=== PATIENT | male | born 1965 | race Caucasian/White ===

== ENCOUNTER 2019-12-21 05:36 | Inpatient (IN) | payer OTHER ==
[2019-12-18 11:16] LABS: BASOPHILS # (AUTO) 0.03 x10^3/uL (0-0.1); BASOPHILS % (AUTO) 0 % (0-1); EOSINOPHILS # (AUTO) 0.28 x10^3/uL (0-0.4); EOSINOPHILS % (AUTO) 4 % (1-7); LYMPHOCYTES # (AUTO) 2.01 x10^3/uL (1-3.4); LYMPHOCYTES % (AUTO) 25 % (22-44); MD NO; MEAN CORPUSCULAR HGB CONC 33.8 g/dL (33.2-36.2); MEAN CORPUSCULAR VOLUME 97.5 fL (81-97); MEAN PLATELET VOLUME 7.1 fL (7.4-10.4); MONOCYTES # (AUTO) 0.52 x10^3/uL (0.2-0.8); MONOCYTES % (AUTO) 6 % (2-9); NEUTROPHILS # (AUTO) 5.32 x10^3/uL (1.8-6.8); NEUTROPHILS % (AUTO) 65 % (42-75); PLATELET COUNT 305 x10^3/uL (130-400); RED BLOOD COUNT 4.61 x10^6/uL (4.38-5.82); RED CELL DISTRIBUTION WIDTH 13.5 % (9.4-14.8)
[2019-12-18 11:21] LABS: HCT (SEDRATE) 44.9 % (39.2-51.8)
[2019-12-18 11:22] LABS: INTERNATIONAL NORMALIZED RATIO 0.94 (0.93-1.1)
[2019-12-18 11:26] LABS: ALANINE AMINOTRANSFERASE 24 U/L (12-78); ALBUMIN 3.7 g/dL (3.4-5.0); ANION GAP 5 mmol/L (5-15); CALCIUM 8.9 mg/dL (8.5-10.1); CHLORIDE 108 mmol/L (98-107); CREATININE 1.07 mg/dL (0.7-1.3)
[2019-12-18 11:28] LABS: ALKALINE PHOSPHATASE 69 U/L (45-117); BILIRUBIN,TOTAL 0.6 mg/dL (0.2-1.0); TOTAL PROTEIN 7.3 g/dL (6.4-8.2)
[~2019-12-21] VITALS: Ht 167.6 cm; Wt 81.4 kg
[~2019-12-21 05:36] MED LIST: BACL-19 PO; HYDR-3240 PO; IBUP-1223 PO; LISI-167 PO; MOME17SP NS; MONT10TA6 PO; MORP10CA7 PO; MULT-658 PO; simvastatin PO
[2019-12-21] MEDS ORDERED: SIMV80TA18 PO (06:29)
[2019-12-21] MEDS ORDERED: VANCOMYCIN PMX 1GM/200ML 200 ML IV ONE (06:30)
[2019-12-21] MEDS ORDERED: LACTATED RINGERS 1,000 ML IV SCH (06:32)
[2019-12-21] MEDS ORDERED: LIDOCAINE-MPF 1%, 2ML ONE (06:34)
[2019-12-21] MEDS ORDERED: THROMBIN 20,000 UNIT VIAL TP ONE (06:56)
[2019-12-21] MEDS ORDERED: TRANEXAMIC ACID 100 MG/ML, 10ML ONE ×2 (06:56)
[2019-12-21] MEDS ORDERED: BUPIVACAINE/PF-EPI 0.5% 1:200K ONE (06:56)
[2019-12-21] MEDS ORDERED: BACITRACIN 50,000 UNIT ONE (06:56)
[2019-12-21] MEDS ORDERED: VANCOMYCIN 1,000 MG ONE ×2 (06:56→10:33)
[2019-12-21] MEDS ORDERED: PROPOFOL 100 ML ONE (06:56)
[2019-12-21] MEDS ORDERED: FENTANYL PF 250 MCG/5ML ONE (06:57)
[2019-12-21] MEDS ORDERED: MIDAZOLAM 1 MG/ML, 5ML ONE (06:57)
[2019-12-21] MEDS ORDERED: OxyconTIN ER 20 MG TAB.ER PO ONE (07:00)
[2019-12-21] MEDS ORDERED: FAMOTIDINE 20 MG TABLET PO ONE (07:00)
[2019-12-21] MEDS ORDERED: LIDOCAINE-MPF 1%, 2ML INFIL ONE (07:00)
[2019-12-21] MEDS ORDERED: GABAPENTIN 300 MG CAPSULE PO ONE (07:00)
[2019-12-21] MEDS ORDERED: ACETAMINOPHEN 500 MG TABLET PO ONE (07:00)
[2019-12-21] MEDS ORDERED: CEFAZOLIN 1,000 MG ONE (07:03)
[2019-12-21] MEDS ORDERED: DEXAMETHASONE 4 MG/ML, 1ML ONE ×2 (07:03)
[2019-12-21] MEDS ORDERED: SUCCINYLCHOLINE 20 MG/ML, 10ML ONE (07:37)
[2019-12-21] MEDS ORDERED: DEXAMETHASONE 4 MG/ML, 1ML IVPush PRN (08:00)
[2019-12-21] MEDS ORDERED: SENNA/DOCUSATE TABLET PO PRN (08:00)
[2019-12-21] MEDS ORDERED: MAGNESIUM HYDROXIDE 8%, 30ML UDC PO PRN (08:00)
[2019-12-21] MEDS ORDERED: LORazepam 1MG TABLET PO PRN (08:00)
[2019-12-21] MEDS ORDERED: BISACODYL 10 MG SUPP PR PRN (08:00)
[2019-12-21] MEDS ORDERED: LABETALOL 5MG/ML, 20ML IVPush PRN (08:00)
[2019-12-21] MEDS ORDERED: DIPHENHYDRAMINE 50 MG/ML, 1ML IVPush PRN (08:00)
[2019-12-21] MEDS ORDERED: morphine SULFATE 10 MG/ML, 1ML IVPush PRN (08:00)
[2019-12-21] MEDS ORDERED: KETOROLAC 30 MG/1 ML IM PRN (08:00)
[2019-12-21] MEDS ORDERED: ACETAMINOPHEN 500 MG TABLET PO PRN (08:00)
[2019-12-21] MEDS ORDERED: CEFAZOLIN PMX 1GM/50ML 50 ML IVPB SCH (08:00)
[2019-12-21] MEDS ORDERED: OXYcodone IR 5MG TABLET PO PRN (08:00)
[2019-12-21] MEDS: D5%-0.9% NACL+KCL 20MEQ 1,000 ML IV SCH ×2 (08:00→18:02)
[2019-12-21] MEDS ORDERED: PHARMACY MAY ADJ FOR RENAL FX MC PRN (08:00)
[2019-12-21] MEDS ORDERED: PROMETHAZINE 25 MG/ML, 1ML IM PRN (08:00)
[2019-12-21] MEDS ORDERED: hydrALAzine 20 MG/ML, 1ML IV PRN (10:00)
[2019-12-21] MEDS ORDERED: ONDANSETRON 2MG/ML, 2ML IV PRN (10:00)
[2019-12-21] MEDS ORDERED: HYDROmorphone 2 MG/ML, 1ML IVPush PRN (10:00)
[2019-12-21] MEDS ORDERED: PROMETHAZINE 25 MG/ML, 1ML IV PRN (10:00)
[2019-12-21] MEDS ORDERED: OXYcodone 5 MG/5 ML ORAL.SOL UDC PO PRN (10:00)
[2019-12-21] MEDS ORDERED: LABETALOL 5MG/ML, 20ML IV PRN (10:00)
[2019-12-21] MEDS ORDERED: MEPERIDINE/PF 25MG/ML,1ML IVPush PRN (10:00)
[2019-12-21] MEDS ORDERED: PROPOFOL 50 ML ONE (10:47)
[2019-12-21] MEDS ORDERED: PROPOFOL 10 MG/ML, 20ML ONE (10:48)
[2019-12-21] MEDS ORDERED: THROMBIN 5,000 UNIT VIAL TP ONE ×2 (11:39→11:42)
[2019-12-21] MEDS ORDERED: ONDANSETRON 2MG/ML, 2ML ONE (12:00)
[2019-12-21] MEDS ORDERED: FENTANYL PF 100 MCG/2ML ONE ×3 (12:03→13:32)
[2019-12-21] MEDS ORDERED: ROCURONIUM 10MG/ML,5ML ONE (12:06)
[2019-12-21] MEDS ORDERED: KETOROLAC 30 MG/1 ML ONE (12:55)
[2019-12-21] MEDS: FENTANYL PF 100 MCG/2ML IV PRN ×3 (12:58→13:35)
[2019-12-21] MEDS ORDERED: KETOROLAC 30 MG/1 ML IVPush PRN (13:30)
[2019-12-21] MEDS ORDERED: METHOCARBAMOL 1,000 MG in DEXTROSE 5% 100 ML IV PRN ×2 (13:30→16:00)
[2019-12-21] MEDS ORDERED: LORazepam 2 MG/ML, 1ML ONE (13:43)
[2019-12-21] MEDS ORDERED: LORazepam 2 MG/ML, 1ML IVPush PRN (14:00)
[2019-12-21] MEDS: CEFAZOLIN PMX 1GM/50ML 50 ML IVPB SCH ×2 (15:31→23:15)
[2019-12-21] MEDS ORDERED: SODIUM CHLORIDE 0.9% 1,000ML IV PRN (16:00)
[2019-12-21 18:24] VITALS: BP 152/86
[2019-12-21] MEDS: ATORVASTATIN 40 MG TABLET PO SCH (20:02)
[2019-12-21] MEDS: MONTELUKAST 10 MG TABLET PO SCH (20:02)
[2019-12-21] MEDS ORDERED: ZOLPIDEM 5MG TABLET PO PRN (21:00)
[2019-12-21] MEDS: ONDANSETRON 2MG/ML, 2ML IVPush PRN (21:10)
[2019-12-21] MEDS: DIAZEPAM 5 MG/ML, 2ML IVPush PRN (21:10)
[2019-12-22 01:23] VITALS: BP 146/85
[2019-12-22] MEDS: DIAZEPAM 5 MG/ML, 2ML IVPush PRN (05:19)
[2019-12-22] MEDS: D5%-0.9% NACL+KCL 20MEQ 1,000 ML IV SCH ×2 (05:19→18:11)
[2019-12-22 05:28] LABS: BASOPHILS # (AUTO) 0.04 x10^3/uL (0-0.1); BASOPHILS % (AUTO) 0 % (0-1); EOSINOPHILS # (AUTO) 0.02 x10^3/uL (0-0.4); EOSINOPHILS % (AUTO) 0 % (1-7); LYMPHOCYTES % (AUTO) 13 % (22-44); MD NO; MEAN CORPUSCULAR HEMOGLOBIN 33.8 pg (27.5-34.5); MEAN CORPUSCULAR HGB CONC 34.5 g/dL (33.2-36.2); MEAN CORPUSCULAR VOLUME 97.8 fL (81-97); MEAN PLATELET VOLUME 7.7 fL (7.4-10.4); MONOCYTES # (AUTO) 1.25 x10^3/uL (0.2-0.8); MONOCYTES % (AUTO) 8 % (2-9); NEUTROPHILS # (AUTO) 12.38 x10^3/uL (1.8-6.8); NEUTROPHILS % (AUTO) 79 % (42-75); PLATELET COUNT 225 x10^3/uL (130-400); RED BLOOD COUNT 3.75 x10^6/uL (4.38-5.82); RED CELL DISTRIBUTION WIDTH 12.9 % (9.4-14.8)
[2019-12-22 07:23] VITALS: BP 139/80
[2019-12-22] MEDS: MULTIVITAMIN 1 TABLET PO SCH (08:25)
[2019-12-22] MEDS: OXYcodone IR 5MG TABLET PO PRN ×4 (08:25→20:27)
[2019-12-22] MEDS: LISINOPRIL 10 MG TABLET PO SCH (08:25)
[2019-12-22] MEDS: FLUTICASONE NASAL SPRAY 16GM NAS SCH (09:00)
[2019-12-22] MEDS ORDERED: DIAZEPAM 5 MG TABLET ONE (10:39)
[2019-12-22] MEDS: DIAZEPAM 5 MG TABLET PO PRN ×2 (10:42→20:27)
[2019-12-22] MEDS: ACETAMINOPHEN 500 MG TABLET PO SCH ×2 (13:16→20:26)
[2019-12-22] MEDS: KETOROLAC 30 MG/1 ML IM/IV SCH ×2 (13:16→20:27)
[2019-12-22 14:00] VITALS: BP 118/66
[2019-12-22 20:23] VITALS: BP 135/64
[2019-12-22] MEDS: MONTELUKAST 10 MG TABLET PO SCH (20:27)
[2019-12-22] MEDS: ATORVASTATIN 40 MG TABLET PO SCH (20:27)
[2019-12-23] MEDS: OXYcodone IR 5MG TABLET PO PRN ×3 (00:03→08:57)
[2019-12-23] MEDS: DIAZEPAM 5 MG TABLET PO PRN ×2 (00:04→04:31)
[2019-12-23] MEDS: ACETAMINOPHEN 500 MG TABLET PO SCH ×5 (02:07→20:26)
[2019-12-23 02:14] VITALS: BP 112/59
[2019-12-23] MEDS: KETOROLAC 30 MG/1 ML IM/IV SCH ×3 (04:31→20:27)
[2019-12-23 05:57] LABS: BASOPHILS # (AUTO) 0.03 x10^3/uL (0-0.1); BASOPHILS % (AUTO) 0 % (0-1); EOSINOPHILS # (AUTO) 0.08 x10^3/uL (0-0.4); EOSINOPHILS % (AUTO) 1 % (1-7); LYMPHOCYTES # (AUTO) 1.17 x10^3/uL (1-3.4); LYMPHOCYTES % (AUTO) 10 % (22-44); MD NO; MEAN CORPUSCULAR HEMOGLOBIN 33.1 pg (27.5-34.5); MEAN CORPUSCULAR HGB CONC 33.7 g/dL (33.2-36.2); MEAN CORPUSCULAR VOLUME 98.2 fL (81-97); MEAN PLATELET VOLUME 7.2 fL (7.4-10.4); MONOCYTES # (AUTO) 0.95 x10^3/uL (0.2-0.8); MONOCYTES % (AUTO) 8 % (2-9); NEUTROPHILS # (AUTO) 9.66 x10^3/uL (1.8-6.8); NEUTROPHILS % (AUTO) 81 % (42-75); PLATELET COUNT 225 x10^3/uL (130-400); RED BLOOD COUNT 3.75 x10^6/uL (4.38-5.82); RED CELL DISTRIBUTION WIDTH 13.3 % (9.4-14.8)
[2019-12-23 07:05] VITALS: BP 100/67
[2019-12-23] MEDS: D5%-0.9% NACL+KCL 20MEQ 1,000 ML IV SCH ×3 (08:51→20:00)
[2019-12-23] MEDS: MULTIVITAMIN 1 TABLET PO SCH (08:55)
[2019-12-23] MEDS: LISINOPRIL 10 MG TABLET PO SCH (08:56)
[2019-12-23] MEDS: FLUTICASONE NASAL SPRAY 16GM NAS SCH (09:00)
[2019-12-23 14:17] VITALS: BP 100/63
[2019-12-23] MEDS: METHOCARBAMOL 750 MG TABLET PO SCH ×2 (17:03→23:12)
[2019-12-23] MEDS: DEXAMETHASONE 4 MG/ML, 1ML IVPush SCH ×2 (17:04→20:27)
[2019-12-23 18:42] VITALS: BP 118/73
[2019-12-23] MEDS: ATORVASTATIN 40 MG TABLET PO SCH (20:26)
[2019-12-23] MEDS: MONTELUKAST 10 MG TABLET PO SCH (20:26)
[2019-12-23] MEDS: ONDANSETRON 2MG/ML, 2ML IVPush PRN (20:40)
[2019-12-24] MEDS: ACETAMINOPHEN 500 MG TABLET PO SCH ×3 (02:12→15:50)
[2019-12-24] MEDS: DEXAMETHASONE 4 MG/ML, 1ML IVPush SCH ×3 (02:12→15:50)
[2019-12-24 02:56] VITALS: BP 117/70
[2019-12-24] MEDS: D5%-0.9% NACL+KCL 20MEQ 1,000 ML IV SCH ×2 (04:34→15:50)
[2019-12-24] MEDS: KETOROLAC 30 MG/1 ML IM/IV SCH (04:35)
[2019-12-24 06:02] LABS: MEAN CORPUSCULAR HGB CONC 33.5 g/dL (33.2-36.2); MEAN CORPUSCULAR VOLUME 98.5 fL (81-97); MEAN PLATELET VOLUME 7.8 fL (7.4-10.4); PLATELET COUNT 254 x10^3/uL (130-400); RED BLOOD COUNT 3.89 x10^6/uL (4.38-5.82); RED CELL DISTRIBUTION WIDTH 12.9 % (9.4-14.8)
[2019-12-24 06:42] LABS: BASOPHILS % (AUTO) 0 % (0-1); EOSINOPHILS % (AUTO) 0 % (1-7); LYMPHOCYTES # (AUTO) 0.57 x10^3/uL (1-3.4); LYMPHOCYTES % (AUTO) 4 % (22-44); MD SCAN; MONOCYTES # (AUTO) 0.18 x10^3/uL (0.2-0.8); MONOCYTES % (AUTO) 1 % (2-9); NEUTROPHILS # (AUTO) 13.88 x10^3/uL (1.8-6.8); NEUTROPHILS % (AUTO) 95 % (42-75)
[2019-12-24 07:10] VITALS: BP 128/79
[2019-12-24] MEDS: MULTIVITAMIN 1 TABLET PO SCH (08:39)
[2019-12-24] MEDS: LISINOPRIL 10 MG TABLET PO SCH (08:39)
[2019-12-24] MEDS: FLUTICASONE NASAL SPRAY 16GM NAS SCH (08:40)
[2019-12-24] MEDS: METHOCARBAMOL 750 MG TABLET PO SCH ×2 (08:40→15:49)
[2019-12-24] MEDS: OXYcodone IR 5MG TABLET PO PRN ×3 (08:40→17:38)
[2019-12-24] MEDS: DIAZEPAM 5 MG TABLET PO PRN ×2 (11:55→17:38)
[2019-12-24] MEDS ORDERED: OXYC5TAB2 PO (13:01)
[2019-12-24] MEDS ORDERED: DIAZ5TAB4 PO (13:02)
[2019-12-24] MEDS ORDERED: CEPH-368 PO (13:03)
[2019-12-24 14:25] VITALS: BP 119/70
[2019-12-24] MEDS ORDERED: ONDANSETRON ODT 4 MG ONE (16:47)
[2019-12-24] MEDS ORDERED: ONDANSETRON ODT 4 MG PO PRN (17:00)
== END 2019-12-24 19:15 | disposition home or self-care (01) | DRG 455 ==
LOC: ORIP 05:36 → 4NE 14:36
PROVIDERS: ADMIT Orthopaedic Surgery Orthopaedic Surgery of the Spine; ATTEND Orthopaedic Surgery Orthopaedic Surgery of the Spine
PROC: 0SP304Z Removal of Internal Fixation Device from Lumbosacral Joint, Open Approach (ICD-10-PCS; 2019-12-21)
PROC: 01NB0ZZ Release Lumbar Nerve, Open Approach (ICD-10-PCS; 2019-12-21)
PROC: 07DR0ZZ Extraction of Iliac Bone Marrow, Open Approach (ICD-10-PCS; 2019-12-21)
PROC: 4A11X4G Monitoring of Peripheral Nervous Electrical Activity, Intraoperative, External Approach (ICD-10-PCS; 2019-12-21)
PROC: 0SG0071 Fusion of Lumbar Vertebral Joint with Autologous Tissue Substitute, Posterior Approach, Posterior Column, Open Approach (ICD-10-PCS; 2019-12-21)
PROC: 0SG00AJ Fusion of Lumbar Vertebral Joint with Interbody Fusion Device, Posterior Approach, Anterior Column, Open Approach (ICD-10-PCS; principal; 2019-12-21 07:30)
DX: M48.061 Spinal stenosis, lumbar region without neurogenic claudication (principal); M43.16 Spondylolisthesis, lumbar region; M51.16 Intervertebral disc disorders with radiculopathy, lumbar region
CPT/HCPCS: 36415; 72100; J3490; 71046; 80053; 83036; 85025; 85610; 85651; 85730; 93005; 95938; 95941; C1713; G0378; J0690; J1100; J1885; J2250; J2270; J2405; J2704; J3010; J3360; J3370; Q0162; C1760; C1762; C1763; C1889; C9362; J0330; J2060; J2800; J3480; J7120